=== PATIENT | female | born 1995 | race Caucasian/White ===

== ENCOUNTER 2017-03-25 07:48 | Outpatient (CLI) | payer OTHER ==
--- NOTE | 2017-03-25 12:51 | NM ---
HEPATOBILIARY SCAN: HISTORY: Right upper quadrant pain. FINDINGS: Examination was performed using 5 mCi 99m Technetium mebrofenin. This shows a normal distribution o f radiopharmaceutical within the liver and prompt gallbladder opacification at approximately 4-5 min utes. Bowel activity is also present. An 8 ounce dose of Ensure was administered. The ejection fr action was 59%, normal being greater than 33%. IMPRESSION: Normal hepatobiliary scan. POS: ROYAL
== END 2017-03-25 07:49 | disposition home or self-care (01) ==
LOC: NM 07:48
PROVIDERS: ATTEND Family Medicine
DX: K82.8 Other specified diseases of gallbladder (principal)
CPT/HCPCS: 78227; A9537

== ENCOUNTER 2017-05-25 15:37 | Outpatient (CLI) | payer OTHER ==
[2017-05-25 16:45] LABS: Hematocrit 39.8 % (36.0-47.0); Red Blood Cell (RBC) Count 4.07 mill/uL (4.00-5.20); White Blood Cell (WBC) Count 5.3 thou/uL (4.8-10.8)
[2017-05-25 16:55] LABS: ALT (SGPT) 17 U/L (8-55); AST (SGOT) 21 U/L (5-30); Alkaline Phosphatase 92 U/L (40-150); Anion Gap 8 mmol/L (10-20); BUN (Urea Nitrogen) 12 mg/dL (8.4-21.0); Bilirubin, Direct 0.4 mg/dL (0.1-0.3); Bilirubin, Total 1.1 mg/dL (0.2-1.2); Calc. Creatinine Clearance 0 mL/min (70-130); Calcium 9.5 mg/dL (7.8-10.44); Carbon Dioxide 33 mmol/L (22-29); Chloride 103 mmol/L (98-107); Estimated GFR-MDRD 70; Protein, Total 6.8 g/dL (6.0-8.3)
== END 2017-05-25 15:38 | disposition home or self-care (01) ==
LOC: LABBT 15:37
PROVIDERS: ATTEND Surgery
DX: Z01.812 Encounter for preprocedural laboratory examination (principal); K82.8 Other specified diseases of gallbladder
CPT/HCPCS: 80048; 80076; 84703; 85027

== ENCOUNTER 2017-05-26 09:01 | Day surgery (SDC) | payer OTHER ==
[2017-05-25 16:10] VITALS: BMI 18.8
[2017-05-26] MEDS ORDERED: CEFAZOLIN/Water 2 GM/20 ML SYRINGE ONE (09:28)
[2017-05-26] MEDS ORDERED: Midazolam HCl 2 mg/2 ml Vial ONE ×2 (10:02→12:15)
[2017-05-26] MEDS ORDERED: Indocyanine Green 25 MG/10 ML VIAL ONE (11:06)
[2017-05-26] MEDS ORDERED: Bupivacaine/Epinephrine 0.25% 30 ML VIAL ONE (12:12)
[2017-05-26] MEDS ORDERED: Fentanyl 100 MCG/2 ML VIAL ONE ×2 (12:15→13:41)
[2017-05-26] MEDS ORDERED: Promethazine HCl 25 MG/ML VIAL ONE (14:12)
[2017-05-26] MEDS ORDERED: Ondansetron HCl/PF 4 MG/2 ML Vial ONE (14:27)
[2017-05-26] MEDS ORDERED: Glycopyrrolate 0.2 MG/ML 5 ML SYRINGE ONE (14:27)
[2017-05-26] MEDS ORDERED: Lidocaine 1% PF 5 ML VIAL ONE (14:27)
[2017-05-26] MEDS ORDERED: Propofol 200 MG/20 ML VIAL ONE (14:27)
[2017-05-26] MEDS ORDERED: Ketorolac Tromethamine 30 MG/ML VIAL ONE (14:27)
--- NOTE | 2017-05-26 21:40 | OP ---
DATE OF PROCEDURE: 05/26/2017 PREOPERATIVE DIAGNOSIS: Chronic biliary dyskinesia. POSTOPERATIVE DIAGNOSIS: Chronic biliary dyskinesia. PROCEDURE: Laparoscopic cholecystectomy. SURGEON: Jake Houston M.D. ANESTHESIA: General. ESTIMATED BLOOD LOSS: Minimal. COMPLICATIONS: None. SPECIMEN: Gallbladder. FINDINGS: Chronic cholecystitis. PROCEDURE IN DETAIL: The patient was taken to the Operating Room and laid supine on the Operating Heike m table. After general anesthetic was obtained, the abdomen was prepped and draped in a sterile fash ion. A curved incision was made below the umbilicus. Cautery was used to dissect down to the umbilic al fascia. Umbilical fascia was incised and held up using a Rochelle. The abdominal cavity was entere d using a Kayleigh clamp. Holding stitch of Vicryl was placed on each side of the fascia. Mcgill troca r was placed. High-flow pneumoperitoneum was obtained. An upper midline 5-mm port and two right upp er quadrant 5-mm ports were placed under direct camera visualization. The gallbladder was retracted from the gallbladder fossa. The peritoneum of the gallbladder was opened anteriorly and posteriorly. The critical view triangle was seen showing only the cystic duct and cystic artery branching from m edial to lateral. There were no other branching structures. Two clips were placed proximally on the cystic duct and one laterally. It was cut using laparoscopic scissors. The cystic artery was taken in the same way. Electrocautery was then used to dissect the gallbladder out of the gallbladder fos sa. The gallbladder was placed in an Endo catch bag and brought out through the Mcgill. There was n o bleeding or bile in the liver bed. The cystic duct stump and cystic artery stump were intact witho ut evidence of extravasation or bleeding. All port sites were infiltrated using local anesthesia. A ll ports were removed under camera visualization. Pneumoperitoneum was let down. The Vicryl was use d to close the fascial defect below the umbilicus. All incisions were irrigated and closed using 4-0 Monocryl and DermaBond. The patient was en route to Recovery in stable condition. All instrument c ounts, needle counts and lap counts were correct.
== END 2017-05-26 16:00 | disposition home or self-care (01) ==
LOC: SDC 09:01
PROVIDERS: ATTEND Surgery
PROC: 0FT44ZZ Resection of Gallbladder, Percutaneous Endoscopic Approach (ICD-10-PCS; principal; 2017-05-26)
DX: K81.1 Chronic cholecystitis (principal); K82.8 Other specified diseases of gallbladder; G43.909 Migraine, unspecified, not intractable, without status migrainosus; F41.9 Anxiety disorder, unspecified; Z79.899 Other long term (current) drug therapy; Z88.1 Allergy status to other antibiotic agents; Z91.013 Allergy to seafood; Z91.018 Allergy to other foods; Z98.818 Other dental procedure status; Z98.890 Other specified postprocedural states
CPT/HCPCS: 88304; 96374; J1885; J2001; J2250; J2405; J2550; J2704; J3010

== ENCOUNTER 2017-08-20 07:30 | Outpatient (CLI) | payer OTHER ==
--- NOTE | 2017-08-20 08:13 | ULT ---
ULTRASOUND OF ABDOMEN: Date: 08/20/17 HISTORY: Liver lesion. FINDINGS: There are no previous exams for comparison. There is an 8.0 mm echogenic focus in the right lobe of the liver, likely hemangioma. No intrahepatic ductal dilatation is seen. The patient is post cholecystectomy. The common duct measures 5.0 mm in d iameter. The spleen, kidneys, and visualized portions of the pancreas, aorta, and IVC are unremarkabl e. No free fluid is seen. IMPRESSION: Probable 8.0 mm liver hemangioma. RECOMMENDATION: Follow-up ultrasound is recommended in 3 months. POS: ROYALH
== END 2017-08-20 07:31 | disposition home or self-care (01) ==
LOC: ULT 07:30
PROVIDERS: ATTEND Internal Medicine
DX: K76.89 Other specified diseases of liver (principal)
CPT/HCPCS: 76700

== ENCOUNTER 2018-06-04 08:07 | Outpatient (CLI) | payer BC ==
--- NOTE | 2018-06-04 09:47 | ULT ---
ULTRASOUND ABDOMEN COMPLETE: DATE: 06/04/2018. HISTORY: A 22-year-old female with epigastric abdominal pain. TECHNIQUE: Ruelas-scale ultrasound evaluation of the liver, gallbladder, spleen, pancreas, common bile duct, kidne ys, abdominal aorta, and inferior vena cava (IVC). FINDINGS: Liver is normal in size and has normal parenchymal echogenicity. Again noted is the 0.8 cm nonshadow ing hyperechoic focus consistent with a benign hemangioma. No interval change since 08/20/2017. Gallbladder is surgically absent. The common duct caliber is 4 mm. Bilateral kidneys have a normal sonographic appearance with no hydronephrosis. No splenomegaly. Much of the pancreas is obscured by shadowing from bowel gas. No interval change overall since 08/20/2017. IMPRESSION: 1. Status post cholecystectomy. 2. No significant pathology. 3. Small benign hemangioma which does not require additional followup. NGUYEN Casey POS: SARAH
== END 2018-06-04 08:08 | disposition home or self-care (01) ==
LOC: SCSULT 08:07
PROVIDERS: ATTEND Internal Medicine
DX: R10.13 Epigastric pain (principal); K59.09 Other constipation; K58.9 Irritable bowel syndrome, unspecified; D18.03 Hemangioma of intra-abdominal structures; Z90.49 Acquired absence of other specified parts of digestive tract
CPT/HCPCS: 76700